=== PATIENT | female | born 1930 | race Caucasian/White ===

== ENCOUNTER → 2018-10-31 | Outpatient (REF) | payer OTHER, MEDICAID ==
[2018-10-31 14:08] LABS: BASO % 0.3 % (0.0-1.0); EOS # 0.1 10^3/uL (0.0-0.50); EOS % 0.5 % (0.0-3.0); HEMATOCRIT 35.9 % (36.0-47.0); HEMOGLOBIN 11.6 g/dl (12.0-15.5); LYMPH # 3.6 10^3/uL (1.5-4.5); LYMPH % 37.9 % (24.0-44.0); MEAN CORPUSCULAR HEMOGLOBIN 31.4 pg (27.0-33.0); MEAN CORPUSCULAR HGB CONC 32.3 g/dl (32.0-36.5); MEAN CORPUSCULAR VOLUME 97.3 fl (80.0-96.0); MONO # 0.7 10^3/uL (0.0-0.8); MONO % 7.1 % (0.0-5.0); NEUTROPHILS # 5.1 10^3/uL (1.8-7.7); PLATELET COUNT, AUTOMATED 301 10^3/uL (150-450); RED BLOOD COUNT 3.69 10^6/uL (4.00-5.40); WHITE BLOOD COUNT 9.4 10^3/uL (4.0-10.0)
[2018-10-31 14:29] LABS: ERYTHROCYTE SEDIMENTATION RATE 42 mm/hr (0-42)
[2018-10-31 14:31] LABS: C REACTIVE PROTEIN QUANTITATIV 5.99 MG/DL (0.00-0.30); RHEUMATOID FACTOR QUANT < 10.0 IU/ML (<15.0); URIC ACID 6.5 MG/DL (2.6-6.0)
[2018-11-06 00:07] LABS: ANTI DOUBLE STRAND-DNA AB 18 IU/mL (0-9); ANTINUCLEAR ANTIBODIES DIRECT Positive (Negative); HLA-B27 Negative (.); Lyme Disease IgG Ab 18 kDa Ban Present (.); Lyme Disease IgG Ab 23 kDa Ban Absent (.); Lyme Disease IgG Ab 28 kDa Ban Present (.); Lyme Disease IgG Ab 30 kDa Ban Present (.); Lyme Disease IgG Ab 39 kDa Ban Present (.); Lyme Disease IgG Ab 41 kDa Ban Present (.); Lyme Disease IgG Ab 45 kDa Ban Absent (.); Lyme Disease IgG Ab 58 kDa Ban Present (.); Lyme Disease IgG Ab 66 kDa Ban Present (.); Lyme Disease IgG Ab 93 kDa Ban Present (.); Lyme Disease IgG West Blot Int Positive (.); Lyme Disease IgG/IgM Antibodie 2.49 ISR (0.00-0.90); Lyme Disease IgM Ab 23 kDa Ban Present (.); Lyme Disease IgM Ab 39 kDa Ban Absent (.); Lyme Disease IgM Ab 41 kDa Ban Present (.); Lyme Disease IgM Ab Quantitati 1.49 index (0.00-0.79); Lyme Disease IgM West Blot Int Positive (.); RNP ANTIBODIES <0.2 AI (0.0-0.9); SJOGREN'S ANTI SS-A <0.2 AI (0.0-0.9); SJOGREN'S ANTI SS-B <0.2 AI (0.0-0.9); SMITH ANTIBODIES <0.2 AI (0.0-0.9)
== END ==
LOC: M LABDRAW1 13:14
PROVIDERS: ATTEND Physician Assistant
DX: M17.12 Unilateral primary osteoarthritis, left knee (principal)

== ENCOUNTER → 2019-02-11 | Outpatient (REF) | payer MEDICARE, MEDICAID ==
[2019-02-11 12:44] LABS: HEMATOCRIT 40.4 % (36.0-47.0); HEMOGLOBIN 13.2 g/dl (12.0-15.5); MEAN CORPUSCULAR HEMOGLOBIN 33.2 pg (27.0-33.0); MEAN CORPUSCULAR HGB CONC 32.7 g/dl (32.0-36.5); MEAN CORPUSCULAR VOLUME 101.8 fl (80.0-96.0); PLATELET COUNT, AUTOMATED 232 10^3/uL (150-450); RED BLOOD COUNT 3.97 10^6/uL (4.00-5.40)
[2019-02-11 12:46] LABS: WHITE BLOOD COUNT 12.6 10^3/uL (4.0-10.0)
[2019-02-11 12:59] LABS: ALBUMIN 4.3 GM/DL (3.2-5.2); BILIRUBIN,TOTAL 0.7 MG/DL (0.2-1.0); C REACTIVE PROTEIN QUANTITATIV 0.3 MG/DL (0.00-0.30); CALCIUM LEVEL 9.5 MG/DL (8.8-10.2); CREATININE FOR GFR 1.39 MG/DL (0.55-1.30); POTASSIUM SERUM 4.3 MEQ/L (3.5-5.1); THYROID STIMULATING HORMONE 2.21 uIU/ML (0.358-3.740); TOTAL PROTEIN 6.7 GM/DL (6.4-8.2); URIC ACID 5.5 MG/DL (2.6-6.0)
[2019-02-11 13:05] LABS: CREATININE,RANDOM URINE 72.4 MG/DL; TOTAL PROTEIN,RANDOM URINE 14.3 MG/DL (0.0-12.0)
[2019-02-11 13:07] LABS: EOSINOPHILS 1 % (0-5); LYMPHOCYTES 64 % (16-52); MONOCYTES 1 % (0-8); NEUTROPHILS 34 % (35-75); PLATELET ESTIMATE NORMAL (NORMAL)
[2019-02-11 13:12] LABS: ERYTHROCYTE SEDIMENTATION RATE 4 mm/hr (0-42)
== END ==
LOC: M SFHCPLAZ 10:02
PROVIDERS: ATTEND Internal Medicine Rheumatology
DX: M32.9 Systemic lupus erythematosus, unspecified (principal); M13.0 Polyarthritis, unspecified